=== PATIENT | male | born 1955 | race Caucasian/White ===

== ENCOUNTER → 2017-06-02 12:20 | Outpatient (CLI) | payer OTHER, SELFPAY ==
--- NOTE | 2017-06-02 12:29 | XR_ITS ---
EXAM: XR cervical spine 5V HISTORY: ITS.REASON: CERVICALGIA, RADICULAR PAIN RT ARM ORDERING PHYSICIAN: Donavan Anguiano PATIENT AGE: 61 years COMPARISON: None FINDINGS: There is normal alignment. No fracture or dislocation is evident. No lytic or blastic change. There is mild multilevel degenerative disc disease with decrease in the disc space C5-C6 and C6-C7. There are small anterior osteophytes. The foramina are patent. No cervical rib apparent. IMPRESSION: Mild cervical spondylosis with mild degenerative disc disease and osteophytosis
== END ==
PROVIDERS: PCP Internal Medicine; Visit Provider Internal Medicine
DX: M54.2 Cervicalgia (principal); M54.12 Radiculopathy, cervical region
CPT/HCPCS: 72050

== ENCOUNTER → 2019-01-04 15:33 | Outpatient (CLI) | payer OTHER, SELFPAY ==
--- NOTE | 2019-01-04 15:42 | XR_ITS ---
PROCEDURE: XR SINUS MIN 3V CLINICAL INDICATION: S/P TOOTH ABCESS WITH FACIAL PAIN,R/O OSTEOMYLITIS COMPARISON: No exams were available for comparison FINDINGS: No sinus air-fluid level or mucosal thickening. No obvious bony erosive process. IMPRESSION: Negative facial bones/sinuses Dictated by: Bret Stevens MD 01/04/2019 16:21 Signed by: <Electronically signed by Bret Stevens MD in [facility]> 01/04/2019 16:21
== END ==
PROVIDERS: PCP Internal Medicine; Visit Provider Internal Medicine
DX: K04.7 Periapical abscess without sinus (principal); R51 Headache
CPT/HCPCS: 70220

== ENCOUNTER → 2020-01-03 16:16 | Outpatient (CLI) | payer OTHER, MEDICARE, SELFPAY ==
--- NOTE | 2020-01-03 16:24 | XR_ITS ---
PROCEDURE: XR CHEST 2V CLINICAL HISTORY: CHEST PAIN COMPARISON: No exams were available for comparison FINDINGS: The cardiomediastinal silhouette and pulmonary vascularity are within normal limits. The lungs are clear without infiltrates, suspicious nodules, or pleural effusions. No acute bony abnormalities. IMPRESSION: No acute findings. Dictated by: Bret Stevens MD 01/03/2020 17:21 Bret Stevens MD in [facility] 01/03/2020 17:21
--- NOTE | 2020-01-03 16:25 | XR_ITS ---
PROCEDURE: XR LUMBAR SPINE MIN 4V CLINICAL INDICATION: LT LOW BACK PAIN COMPARISON: MR [employer]/O MRI-L-SPINE W/O from 03/02/2013 FINDINGS: There is mild rightward curvature of the thoracolumbar spine. Postsurgical changes are present with inter pedicular screws at L4-L5 and S1 with prior posterior laminectomy at these levels. Degenerative disc disease is present at L4-5 and L5-S1. There is anterolisthesis L5 by approximately 9 mm. Disc spacers are present at L4-5 and L5-S1. No acute fracture or dislocation. Incidental note made of vascular calcifications IMPRESSION: Postsurgical and degenerative changes as described above. Dictated by: Bret Stevens MD 01/03/2020 17:20 Bret Stevens MD in [facility] 01/03/2020 17:20
[2020-01-03 16:47] LABS: Troponin I < 0.01 ng/ml (0.00-0.034)
--- NOTE | 2020-01-03 16:51 | ECG_ITS ---
APPROVED REPORT Exam: Resting ECG HR:66 bpm ECG Measurements Heart Rate 66 AXES NC 194 P 81 QRSd 98 QRS 70 QT 396 T 48 QTc 415 <Conclusion> Normal sinus rhythm Normal ECG Electronically signed by : Donavan Anguiano, 01/03/2020 17:27:11
== END ==
PROVIDERS: Visit Provider Internal Medicine
DX: R07.9 Chest pain, unspecified (principal); M54.5 Low back pain
CPT/HCPCS: 36415; 71046; 72110; 84484; 93005

== ENCOUNTER → 2020-09-25 07:26 | Outpatient (CLI) | payer BC, MEDICARE, SELFPAY ==
--- NOTE | 2020-09-25 07:32 | CT_ITS ---
PROCEDURE: CT ABDOMEN PELVIS WO CON CLINICAL INDICATION: GROSS HEMATURIA COMPARISON: No exams were available for comparison TECHNIQUE: Axial images obtained with sagittal and coronal reformats. All CT scans at the facility use one or more dose reduction, viz: automated exposure control, ma/kV adjustment per patient size (including targeted exams where dose is matched to indication, i.e. head), or iterative reconstruction technique. FINDINGS: LOWER THORAX: No acute finding ABDOMEN & PELVIS: The liver, spleen, pancreas, and kidneys have an unremarkable unenhanced appearance there is bilateral adrenal enlargement left greater than right maintaining an adrenal form shape. The left adrenal gland has an average density of -6 the -9 Hounsfield units consistent with adenomatous involvement. No intestinal obstruction or free air. No evidence of appendicitis. Colonic diverticulosis is present. No evidence of diverticulitis. There is an umbilical hernia containing fat. Mild prominence of the prostate at 4.6 cm. Postsurgical changes of the lumbar spine at L4-L5 and S1 with 8 mm anterolisthesis of L5 on S1. Urinary bladder has an unremarkable appearance. IMPRESSION: Bilateral adrenal enlargement consistent with adenomatous involvement. No renal or ureteral calculi. Colonic diverticulosis without diverticulitis. Dictated by: Bret Stevens MD 09/25/2020 15:48 Bret Stevens MD in [facility] 09/25/2020 15:48
== END ==
PROVIDERS: PCP Internal Medicine; Visit Provider Internal Medicine
DX: R31.0 Gross hematuria (principal)
CPT/HCPCS: 74176

== ENCOUNTER → 2021-02-25 11:04 | Outpatient (CLI) | payer BC, MEDICARE, SELFPAY ==
--- NOTE | 2021-02-25 11:15 | XR_ITS ---
PROCEDURE: XR TIBIA FIBULA LT 2V CLINICAL INDICATION: LT LOWER LEG INJURY COMPARISON: No exams were available for comparison FINDINGS: No fracture or dislocation. No lytic or blastic change. There is normal mineralization. Mild degenerative changes of the knee Other findings:None. IMPRESSION: No acute findings. Dictated by: Bret Stevens MD 02/25/2021 11:36 Bret Stevens MD in [facility] 02/25/2021 11:36
== END ==
PROVIDERS: PCP Internal Medicine; Visit Provider Internal Medicine
DX: M79.662 Pain in left lower leg (principal)
CPT/HCPCS: 73590

== ENCOUNTER 2022-10-12 13:14 | Emergency (ER) | payer BC, MEDICARE, SELFPAY ==
[2022-10-12] VITALS (8 sets, daily range): BP systolic 140–186; BP diastolic 78–104; PULSE 55–70; RESP 18–20; TEMP 36.6; O2SAT 97–99; BMI 27.6
--- NOTE | 2022-10-12 13:22 | ECG_ITS ---
APPROVED REPORT Exam: Resting ECG HR:69 bpm ECG Measurements Heart Rate 69 AXES MN 200 P 75 QRSd 100 QRS 85 QT 414 T 61 QTc 434 Conclusion SINUS RHYTHM NORMAL ECG UNCONFIRMED REPORT Electronically signed by : Noman Robbins MD 10/13/2022 21:28:08
[2022-10-12 13:36] LABS: Basophils % 0.4 % (0.1-2.0); Eosinophils # 0.1 K/mm3 (0.0-0.4); Eosinophils % 1.4 % (0.1-12.0); Hematocrit 44.6 % (42.0-52.0); Hemoglobin 14.5 g/dL (14.1-18.0); Lymphocytes # 3.1 K/mm3 (0.7-4.5); Lymphocytes % 36.5 % (10-50); Mean Corpuscular HGB Conc 32.5 g/dL (31.8-35.4); Mean Corpuscular Hemoglobin 29.8 pg (27.0-31.2); Mean Corpuscular Volume 91.6 fl (80-94); Mean Platelet Volume 8.4 fl (7.4-10.4); Monocytes # 0.4 K/mm3 (0.1-1.0); Monocytes % 5.1 % (1.7-9.3); Neutrophils # 4.9 K/mm3 (1.8-7.8); Neutrophils % 56.7 % (37.0-80.0); Platelet Count 280 K/mm3 (142-424); Red Blood Count 4.87 M/mm3 (4.60-6.20); Red Cell Distribution Width 13.4 % (11.5-17.5); White Blood Count 8.6 K/mm3 (4.8-10.8)
[2022-10-12 13:37] LABS: Chloride 104 mmol/L (98-107); Sodium 140 mmol/L (136-145)
[2022-10-12 13:39] LABS: Alanine Aminotransferase 26 U/L (12-78); Aspartate Amino Transferase 32 U/L (17-59); Bilirubin,Unconjugated 0.5 mg/dL (0.0-1.1); Blood Urea Nitrogen 17 mg/dl (9-20); Creatinine Clearance Estimated 78 mL/min (50-200); Estimated Glomerular Filt Rate 134 ml/min (>60); GFR (African American) 162 ML/MIN (>60)
[2022-10-12 13:40] LABS: Albumin Level 4.5 g/dl (3.5-5.0); Alkaline Phosphatase 80 U/L (38-126); Bilirubin,Indirect 0.3 mg/dL (0.0-0.9); Bilirubin,Total 0.3 mg/dl (0.2-1.3); Calcium 9.4 mg/dl (8.4-10.2); Carbon Dioxide 27 mmol/L (22.0-30.0); Glucose 127 mg/dl (74-100); Total Protein,Serum 7.6 g/dl (6.3-8.2)
--- NOTE | 2022-10-12 13:42 | PC.NURSE ---
LYING B/P 156/87 HR 67 SITTING B/P 169/97 HR 70 STANDING B/P 155/99 HR 74
[2022-10-12 13:53] LABS: Troponin I < 0.01 ng/ml (0.00-0.034)
--- NOTE | 2022-10-12 13:56 | PC.NURSE ---
PATIENT GIVEN BLANKET
--- NOTE | 2022-10-12 14:26 | PC.NURSE ---
DR DUDLEY AT BEDSIDE
--- NOTE | 2022-10-12 14:33 | HMH.EDGENADL ---
Discharge Plan Disposition Patient Disposition: Home, Self-Care Condition: Fair Prescriptions Prescriptions: No Action levofloxacin 750 mg tablet 750 mg PO meloxicam 7.5 mg tablet 7.5 mg PO tizanidine 4 mg tablet 4 mg PO Suprep Bowel Prep Kit 17.5-3.13-1.6 gram recon soln See Rx Instructions PO .COMPLEX Qty: 177 0RF Rx Instructions: DILUTE; drink full amount early evening before AND next morning at least 2 hr before procedure; follow w 960 mL water PO Referrals Follow up/Referrals: Donavan Anguiano MD [Primary Care Provider] - See instructions Activity Restrictions/Add. Instructions Additional Instructions/Restrictions: You have been evaluated for lightheadedness. This is possibly due to dehydration or heat exposure yesterday. Please monitor your symptoms closely. Follow-up with your primary care doctor in 1 to 2 days for symptom recheck. Return to the emergency department at once if you have speech difficulty, vision changes, dizziness, difficulty walking, chest pain, palpitations, any other concerns. Clinical Impressions Clinical Impression: Heat exposure, Light-headedness Discharge ED Provider: Alirio (ED)Javier General Adult HPI General Stated complaint: cold sweats, nausea,shaky,blurred vision Time Seen by Provider: 10/12/22 14:25 Mode of Arrival: Ambulatory Source of Information: Patient Limitations: No Limitations Description of Symptoms (Recalled from ER Triage Doc. by RN): PT REPORTS DIZZINESS AND BLURRED VISION, COLD SWEATS AND ONE EPISODE OF VOMITING LAST NIGHT. SPEECH CLEAR, FACE SYMMETRICAL, PRICING CLERK EQUAL NO DEFICITS NOTED. History of Present Illness HPI narrative: 67-year-old male presenting to the emergency department with nausea, lightheadedness, vomiting. Symptoms started yesterday evening. He had been working in his garage all day in the heat. When he came inside felt hot and sweaty. He then developed nausea. Had 1 episode of vomiting last night. Tried to drink Gatorade which helps. This morning, continues to feel generally unwell. Had lightheadedness upon standing. [place] like his vision was somewhat off. He would not necessarily describe this as dizziness. Did not feel like the room was spinning or he was falling. No difficulty walking. No recent illness, fevers, chills, cough, shortness of breath. No chest pain or palpitations. Related Data Home Medications Medication Instructions Recorded Confirmed levofloxacin 750 mg tablet 750 mg PO 08/27/20 08/27/20 meloxicam 7.5 mg tablet 7.5 mg PO 08/27/20 08/27/20 tizanidine 4 mg tablet 4 mg PO 08/27/20 08/27/20 Previous Rx's Medication Instructions Recorded sodium,potassium,mag sulfates 17.5 See Rx Instructions PO .COMPLEX 08/27/20 gram-3.13 gram-1.6 gram oral soln #177 mL (Suprep Bowel Prep Kit) Allergies Allergy/AdvReac Type Severity Reaction Status Date / Time No Known Allergies Allergy Verified 08/27/20 13:40 [facility] Disclaimer: The information contained in this section may have been updated after the patient was seen, as this information can be updated by other users. Social History Smoking Status: Never smoker alcohol intake: never substance use type: denies use current occupational status: employed Travel in the last 8 weeks: None household members: spouse housing: house ROS Obtained: Yes All systems reviewed & no additional complaints except as documented Physical Exam General General appearance: alert and in no apparent distress Respiratory Respiratory exam: Present normal lung sounds bilaterally; Absent respiratory distress or wheezes Cardiovascular Cardiovascular exam: Present regular rate and normal rhythm Neurological Exam Neurological exam: Present alert, CN II-XII intact, normal gait (No dysmetria) and motor sensory deficit Medical Decision Making Medical Records Medical records reviewed: Yes I reviewed the patient's medical records.
--- NOTE | 2022-10-12 14:35 | PC.NURSE ---
notified lab of new orders
[2022-10-12 14:42] LABS: Lipase 30 U/L (23-300)
[2022-10-12 15:25] LABS: Microscopic, Urine URINE MICROSCOPIC (MICROSCOPIC)
[2022-10-12 15:31] LABS: Appearance,Urine CLEAR (Clear); Bilirubin,Urine Negative (Negative); Blood, Urine TRACE-I (Negative); Color,Urine YELLOW (Yellow); Glucose,Urine (UA) Negative (Negative); Ketones,Urine Negative (Negative); Leukocyte Esterase,Urine TRACE (Negative); Nitrate,Urine Negative (Negative); Protein,Urine Negative (Negative); Specific Gravity, Urine >= 1.030 (1.005-1.030); Urobilinogen,Urine 0.2 EU/dl (0.2)
--- NOTE | 2022-10-12 15:55 | PC.NURSE ---
patient assisted to bathroom, is now sitting in chair with at his side
[2022-10-12 16:21] LABS: RBC,Urine Occasional #/hpf (0-3); Squamous Epithelial Cell,Urine Occasional #/hpf (0-5); WBC,Urine Occasional #/hpf (0-3)
== END 2022-10-12 16:05 | disposition home or self-care (01) ==
PROVIDERS: Emergency Medicine; Emergency Provider Emergency Medicine; PCP Internal Medicine
DX: R42 Dizziness and giddiness (principal); R11.0 Nausea; H53.8 Other visual disturbances; X30.XXXA Exposure to excessive natural heat, initial encounter
CPT/HCPCS: 80048; 80076; 81001; 83690; 84484; 85025; 93005; 96360; 99285

== ENCOUNTER → 2023-04-24 13:45 | Outpatient (CLI) | payer BC, MEDICARE, SELFPAY ==
--- NOTE | 2023-04-24 13:49 | CT_ITS ---
FINAL REPORT TECHNIQUE: Axial images through the abdomen and pelvis were performed without contrast.This study was performed with techniques to keep radiation doses as low as reasonably achievable, (ALARA). Individualized dose reduction techniques using automated exposure control or adjustment of mA and/or kV according to the patient's size were employed. CLINICAL HISTORY: ADRENAL ADENOMA,HEMATURIA COMPARISON: 09/25/2020 FINDINGS: ABDOMEN: The lung bases are clear. The heart size is normal. Limited images of the liver are unremarkable. Gallbladder is present. The spleen is normal. There is right adrenal hyperplasia. A left adrenal nodule is seen measuring 2.3 cm in greatest dimension. The aorta is normal in caliber. There is no significant free fluid or adenopathy. There is no nephrolithiasis. There is no hydronephrosis. PELVIS: The appendix is not identified. The urinary bladder is incompletely distended. There is no significant free fluid or adenopathy. There is streak artifact arising from posterior fusion hardware bridging the lower lumbar spine at L4-5 and L5-S1. There is moderate bilateral neuroforaminal narrowing L5-S1. IMPRESSION: Stable left adrenal adenoma. Reviewed, Interpreted and Dictated by Ulices Gardner MD Transcribed by Lia Earl Authenticated and [facility]
== END ==
PROVIDERS: PCP Internal Medicine; Visit Provider Internal Medicine
DX: D35.2 Benign neoplasm of pituitary gland (principal)
CPT/HCPCS: 74176

== ENCOUNTER 2023-05-20 14:45 | Outpatient (CLI) | payer BC, MEDICARE, SELFPAY ==
--- NOTE | 2023-05-20 14:49 | MR_ITS ---
FINAL REPORT CLINICAL HISTORY: TENDON TEAR RUPTURE. STRAIN MUSCLE/TENDON COMPARISON: None FINDINGS: Multiplanar MR imaging was obtained of the right humerus without contrast. There are degenerative changes in the shoulder and elbow. There is no evidence of fracture or bone marrow edema. There is no bony mass. The long head of the biceps tendon is torn and retracted. There is edema in the biceps musculature well-visualized on series 13 image 8. There is no soft tissue mass or cyst. IMPRESSION: Tear and retraction of the long head biceps tendon with edema. Reviewed, Interpreted and Dictated by Km French III, MD Transcribed by Elise Marie Authenticated and [facility]
--- NOTE | 2023-05-20 14:49 | MR_ITS ---
FINAL REPORT CLINICAL HISTORY: RIGHT SHOULDER PAIN. WEAKNESS IN ARM COMPARISON: None FINDINGS: Multiplanar MR imaging of the right shoulder was performed without contrast. There is supraspinatus and infraspinatus tendinosis. There is a full-thickness tear of the anterior footprint of the supraspinatus tendon measuring approximately 13 mm in AP diameter. There is a partial-thickness articular surface infraspinatus tear greater than 50% thickness. Subscapularis tendinosis is noted with a partial tear of the articular surface greater than 50% thickness. There is moderate AC joint arthrosis. There is a moderate amount of fluid in the joint and bursa. There is spurring along the undersurface of the acromion. There is diffuse labral degeneration. There is a probable inferior labral tear. There is a high-grade partial versus complete tear of the long head of the biceps tendon. There is moderate glenohumeral degenerative change. No significant glenohumeral joint effusion is seen. There is no evidence of fracture or dislocation. There are multiple subchondral cysts of the glenoid. There is a loose body in the subcoracoid recess measuring 9 mm. The musculature is intact. There is no evidence of soft tissue mass. IMPRESSION: Full-thickness tear supraspinatus tendon. Partial-thickness tears infraspinatus tendon and subscapularis tendon. Probable inferior labral tear. High-grade partial versus complete tear long head biceps tendon. Tendinosis and moderate fluid in the joint and bursa. Reviewed, Interpreted and Dictated by Km French III, MD Transcribed by Elise Marie Authenticated and [facility]
--- NOTE | 2023-05-20 15:01 | XR_ITS ---
FINAL REPORT CLINICAL HISTORY: LOOKING FOR METAL IN EYE FINDINGS: Orbits Two views were obtained. No foreign body is identified. IMPRESSION: No foreign body identified. Reviewed, Interpreted and Dictated by Km French III, MD Transcribed by Desi Figueroa Authenticated and [facility]
== END 2023-05-20 23:59 ==
LOC: RAD 14:46
PROVIDERS: PCP Internal Medicine; Visit Provider Internal Medicine
DX: M66.321 Spontaneous rupture of flexor tendons, right upper arm (principal); S86.111A Strain of other muscle(s) and tendon(s) of posterior muscle group at lower leg level, right leg, initial encounter
CPT/HCPCS: 70200; 73218; 73221

== ENCOUNTER 2023-09-29 13:24 | Outpatient (POV) | payer BC, MEDICARE, SELFPAY | END 2023-09-29 23:59 | disposition home or self-care (01) | LOC: SC 13:25 | PROVIDERS: PCP Internal Medicine; Visit Provider Dermatology | DX: Z00.00 Encounter for general adult medical examination without abnormal findings (principal) ==

== ENCOUNTER 2024-07-27 14:25 | Outpatient (CLI) | payer MEDICARE, SELFPAY ==
[2024-07-27 17:19] LABS: Basophils # 0.1 K/mm3 (0-0.2); Basophils % 0.7 % (0.1-2.0); Eosinophils # 0.1 K/mm3 (0.0-0.4); Eosinophils % 1.3 % (0.1-12.0); Hematocrit 43.4 % (42.0-52.0); Hemoglobin 14.6 g/dL (14.1-18.0); Lymphocytes # 2.4 K/mm3 (0.7-4.5); Lymphocytes % 33.6 % (10-50); Mean Corpuscular HGB Conc 33.6 g/dL (31.8-35.4); Mean Corpuscular Volume 89.1 fl (80-94); Monocytes # 0.6 K/mm3 (0.1-1.0); Neutrophils % 56.1 % (37.0-80.0); Platelet Count 251 K/mm3 (142-424); Red Blood Count 4.87 M/mm3 (4.60-6.20); Red Cell Distribution Width 13.2 % (11.5-17.5); White Blood Count 7.1 K/mm3 (4.8-10.8)
[2024-07-27 18:10] LABS: Alanine Aminotransferase 24 U/L (12-78); Albumin Level 4.9 g/dl (3.5-5.0); Alkaline Phosphatase 72 U/L (38-126); Anion Gap 12.3 mEq/L (5-15); Aspartate Amino Transferase 31 U/L (17-59); Bilirubin,Total 0.4 mg/dl (0.2-1.3); Blood Urea Nitrogen 20 mg/dl (9-20); Calcium 10.3 mg/dl (8.4-10.2); Carbon Dioxide 26 mmol/L (22.0-30.0); Chloride 104 mmol/L (98-107); Estimated Glomerular Filt Rate 134 ml/min (>60); GFR (African American) 162 ML/MIN (>60); Globulin 2.4 g/dL (1.3-3.2); Glucose 87 mg/dl (74-100); HDL Cholesterol 49 mg/dl (40-60); Potassium 4.3 mmoL/L (3.5-5.1); Sodium 138 mmol/L (136-145); Total Protein,Serum 7.3 g/dl (6.3-8.2)
[2024-07-27 18:22] LABS: Direct LDL Cholesterol 119.81 mg/dL (100-129)
[2024-07-27 19:28] LABS: Chol/HDL Ratio 4.4 (1-3.5); Cholesterol 214 mg/dl (140-200); Triglycerides 131 mg/dl (30-150); VLDL Cholesterol 26 mg/dL (0-40)
== END 2024-07-27 23:59 | disposition home or self-care (01) ==
LOC: LAB.DROPOF 07-28 13:06
PROVIDERS: PCP Internal Medicine; Visit Provider Internal Medicine
DX: Z12.5 Encounter for screening for malignant neoplasm of prostate (principal); R10.31 Right lower quadrant pain; R10.32 Left lower quadrant pain; E78.5 Hyperlipidemia, unspecified
CPT/HCPCS: 80053; 80061; 85025; G0103

== ENCOUNTER 2024-08-11 06:55 | Outpatient (CLI) | payer MEDICARE, SELFPAY ==
--- NOTE | 2024-08-11 07:00 | CT_ITS ---
FINAL REPORT TECHNIQUE: Oral contrast was given. This study was performed with techniques to keep radiation doses as low as reasonably achievable, (ALARA). Individualized dose reduction techniques using automated exposure control or adjustment of mA and/or kV according to the patient''s size were employed. CLINICAL HISTORY: .hx prostate cancer, left sided pain COMPARISON: 04/24/2023 FINDINGS: Abdomen: Lung bases are clear. Liver, spleen, and pancreas have a normal CT appearance in their limited unenhanced state. The gallbladder is normal. There is a low-density mass in the left adrenal gland measuring 22 mm, unchanged from prior consistent with an adenoma. The kidneys show no stone disease or obstruction. No obvious renal mass is present. No ureteral stones are present. Pelvis: The appendix is normal. There is moderate sigmoid diverticulosis without evidence of diverticulitis. Mild prostate enlargement is identified. No distal ureteral stones are seen. Bladder is unremarkable. No fluid collection or adenopathy is seen. IMPRESSION: No acute findings. Left adrenal mass consistent with a benign adenoma. Reviewed, Interpreted and Dictated by Anayeli Staley MD Transcribed by Desi Figueroa Authenticated and [facility]
== END 2024-08-11 23:59 | disposition home or self-care (01) ==
LOC: RAD 06:56
PROVIDERS: PCP Internal Medicine; Visit Provider Internal Medicine
DX: R10.32 Left lower quadrant pain (principal); R10.31 Right lower quadrant pain; D35.02 Benign neoplasm of left adrenal gland
CPT/HCPCS: 74176

== ENCOUNTER 2025-03-01 08:45 | Outpatient (CLI) | payer MEDICARE, SELFPAY ==
[2025-03-01 13:46] LABS: Anion Gap 14.4 mEq/L (5-15); Blood Urea Nitrogen 15 mg/dl (9-20); Calcium 9.7 mg/dl (8.4-10.2); Carbon Dioxide 27 mmol/L (22.0-30.0); Chloride 100 mmol/L (98-107); Creatinine,Serum 0.70 mg/dl (0.66-1.25); Estimated Glomerular Filt Rate 111 ml/min (>60); GFR (African American) 135 ML/MIN (>60); Glucose 108 mg/dl (74-100); Potassium 4.4 mmoL/L (3.5-5.1); Sodium 137 mmol/L (136-145)
== END 2025-03-01 23:59 ==
LOC: LAB.DROPOF 03-03 08:46
PROVIDERS: PCP Internal Medicine; Visit Provider Internal Medicine
DX: E83.52 Hypercalcemia (principal); Z51.81 Encounter for therapeutic drug level monitoring; Z79.1 Long term (current) use of non-steroidal anti-inflammatories (NSAID)
CPT/HCPCS: 80048

== ENCOUNTER 2025-04-26 11:55 | Outpatient (CLI) | payer MEDICARE, SELFPAY ==
--- OUTSIDE RECORDS SUMMARY | 2025-04-26 20:21 | XMS_ITS ---
Author Organization Unknown ENCOUNTERS Encounter Performer Location Date Diagnosis Diagnosis Status Emergency [facility] (ED) [place] [id number] [place] [address] [id number] JASWANT *Note: Encounters from your own facility or health system may be excluded. Allergies, Adverse Reactions, Alerts Allergen Type Severity Identification Date Medications Name Date Quantity Days Supplied GPI Number
== END 2025-04-26 23:59 | disposition home or self-care (01) ==
LOC: LAB.DROPOF 20:19
PROVIDERS: PCP Internal Medicine; Visit Provider Internal Medicine
DX: R10.32 Left lower quadrant pain (principal); R10.24 Suprapubic pain
CPT/HCPCS: 87086

== ENCOUNTER 2025-05-09 10:51 | Outpatient (CLI) | payer MEDICARE, SELFPAY ==
--- NOTE | 2025-05-09 11:00 | CT_ITS ---
FINAL REPORT TECHNIQUE: Thin section axial images were obtained from the lung bases to the pubic symphysis without IV contrast. Coronal reconstruction images were obtained from the axial data. Exam was performed using dose reduction technique. CLINICAL HISTORY: Left lower quadrant pain COMPARISON: 04/24/2023 FINDINGS: There are no renal or ureteral stones. There is no hydronephrosis or perinephric stranding. The gallbladder is present. There is a left adrenal nodule consistent with adenoma which is stable from prior exam. The remaining unenhanced solid abdominal organs are unremarkable. There is no evidence of small bowel obstruction. The appendix is normal. There is pandiverticulosis of the colon without evidence of acute diverticulitis. Prostate is enlarged. There is no lymphadenopathy or ascites. No acute osseous abnormality is identified. IMPRESSION: No renal or ureteral stones. No hydronephrosis. Left adrenal adenoma, stable from prior exam. Reviewed, Interpreted and Dictated by Penny Oviedo MD Transcribed by Lia Earl Authenticated and [facility]
== END 2025-05-09 23:59 | disposition home or self-care (01) ==
LOC: RAD 10:52
PROVIDERS: PCP Internal Medicine; Visit Provider Internal Medicine
DX: D35.02 Benign neoplasm of left adrenal gland (principal); K57.92 Diverticulitis of intestine, part unspecified, without perforation or abscess without bleeding
CPT/HCPCS: 74176

== ENCOUNTER 2025-05-10 14:29 | Outpatient (CLI) | payer MEDICARE, SELFPAY ==
[2025-05-10 14:27] LABS: Microscopic, Urine URINE MICROSCOPIC (MICROSCOPIC)
--- OUTSIDE RECORDS SUMMARY | 2025-05-10 14:31 | XMS_ITS ---
Author Organization Unknown ENCOUNTERS Encounter Performer Location Date Diagnosis Diagnosis Status Emergency [facility] (ED) [place] [id number] [place] [address] [id number] JASWANT *Note: Encounters from your own facility or health system may be excluded. Allergies, Adverse Reactions, Alerts Allergen Type Severity Identification Date Medications Name Date Quantity Days Supplied GPI Number
[2025-05-10 14:59] LABS: Bilirubin,Urine Negative (Negative); Color,Urine YELLOW (Yellow); Glucose,Urine (UA) Negative (Negative); Ketones,Urine Negative (Negative); Leukocyte Esterase,Urine 1+ (Negative); PH,Urine 7.0 (5.0-8.5); Protein,Urine Negative (Negative); Specific Gravity, Urine 1.015 (1.005-1.030); Urobilinogen,Urine 0.2 EU/dl (0.2)
[2025-05-10 18:26] LABS: Amorphous Sediment,Urine 3+ /lpf; Bacteria,Urine 4+ /lpf; WBC,Urine 20-50 #/hpf (0-3)
== END 2025-05-10 23:59 | disposition home or self-care (01) ==
LOC: LAB.DROPOF 14:29
PROVIDERS: PCP Internal Medicine; Visit Provider Internal Medicine
DX: N39.0 Urinary tract infection, site not specified (principal)
CPT/HCPCS: 81001; 87086